=== PATIENT | female | born 1990 | race Caucasian/White ===

== ENCOUNTER 2019-05-05 02:02 | Emergency (ER) | payer OTHER ==
[~2019-05-05] VITALS: Ht 193 cm; Wt 73.0 kg
[2019-05-05 02:04] VITALS: BP 157/77
--- NOTE | 2019-05-05 02:15 | NUR ---
PT. PROVIDED WITH A URINE CUP AND CLEAN CATCH UA INSTRUCION AND AMBULATORY TO BR WITH STEADY GAIT.
--- NOTE | 2019-05-05 02:24 | NUR ---
TOSHIA SORENSON IN TO [facility] PT. AND DISCUSS POC. URINE SAMPLE COLLECTED AND SENT TO LAB. PT. REPORTS ABD PAIN AND CRAMPING WAKING HER FROM SLEEP TONIGHT. LLQ AND LEFT FLANK PAIN. C/O NAUSEA BUT DENIES VOMITING OR DIARRHEA.
[2019-05-05] MEDS ORDERED: ONDANSETRON ODT 4 MG PO ONE (02:30)
[2019-05-05 02:34] LABS: HCG UR SG 1.029 (1.003-1.030); MICROSCOPIC AUTO
[2019-05-05 02:37] LABS: CULTURE INDICATED? YES
[2019-05-05] MEDS ORDERED: ONDANSETRON ODT 4 MG ONE (02:44)
--- NOTE | 2019-05-05 02:49 | NUR ---
PT. REQUESTING MEDS FOR PAIN/DISCOMFORT. DR. BORDEN IN TO DISCUSS PLAN FOR D/C WITH PT.
[2019-05-05] MEDS ORDERED: PHENAZOPYRIDINE 200 MG TABLET ONE (02:56)
[2019-05-05] MEDS ORDERED: ACETAMINOPHEN 325 MG TABLET ONE (02:56)
[2019-05-05] MEDS ORDERED: PHENAZOPYRIDINE 200 MG TABLET PO ONE (03:00)
[2019-05-05] MEDS ORDERED: ACETAMINOPHEN 325 MG TABLET PO ONE (03:00)
== END 2019-05-05 03:06 | disposition home or self-care (01) ==
LOC: ED 03:00
DX: N30.01 Acute cystitis with hematuria (principal); R10.9 Unspecified abdominal pain; E10.9 Type 1 diabetes mellitus without complications; Z96.41 Presence of insulin pump (external) (internal)
CPT/HCPCS: 81001; 81025; 87086; 99284; Q0162; 99283